=== PATIENT | male | born 1985 | race Caucasian/White ===

== ENCOUNTER 2019-02-18 17:08 | Emergency (ER) | payer BC ==
[~2019-02-18] VITALS: Ht 170.2 cm; Wt 66.7 kg
[2019-02-18 17:15] VITALS: Ht 170.2 cm; Wt 66.7 kg
[2019-02-18 19:15] VITALS: BP 113/62
== END 2019-02-18 19:15 | disposition home or self-care (01) ==
LOC: ED 17:08
DX: N45.1 Epididymitis (principal)
CPT/HCPCS: 87491; 87591; J0696; Q0092

== ENCOUNTER 2019-02-23 12:24 | Emergency (ER) | payer BC ==
[~2019-02-23] VITALS: Ht 167.6 cm; Wt 64.4 kg
[2019-02-23 12:27] VITALS: Ht 167.6 cm; Wt 64.4 kg
[2019-02-23 13:37] VITALS: BP 121/80
== END 2019-02-23 13:37 | disposition home or self-care (01) ==
LOC: ED 12:24
DX: F45.8 Other somatoform disorders (principal)

== ENCOUNTER 2019-03-05 11:45 | Emergency (ER) | payer BC ==
[~2019-03-05] VITALS: Ht 167.6 cm; Wt 65.3 kg
[2019-03-05 11:54] VITALS: BP 106/66; Ht 167.6 cm; Wt 65.3 kg
== END 2019-03-05 13:21 | disposition home or self-care (01) ==
LOC: ED 11:45
DX: S89.91XA Unspecified injury of right lower leg, initial encounter (principal); X50.1XXA Overexertion from prolonged static or awkward postures, initial encounter; Y93.89 Activity, other specified; Y92.89 Other specified places as the place of occurrence of the external cause; Y99.8 Other external cause status
CPT/HCPCS: Q0092